=== PATIENT | male | born 1985 | race Caucasian/White ===

== ENCOUNTER 2017-02-07 23:30 | Emergency (ER) | payer MEDICAID ==
[~2017-02-07] VITALS: Ht 175.3 cm; Wt 79.4 kg
[2017-02-07 23:34] VITALS: BP 134/78
--- NOTE | 2017-02-07 23:39 | NUR ---
AMBULATED TO ER BED 3
--- NOTE | 2017-02-07 23:46 | NUR ---
31Y/M PT. PRESNTS TO ED WITH C/O TOOTHACHE X 2 HRS. PT. STATES HAVING TOOTH DECAY BUT HAVENT MAKE APPOINTMENT WITH DR. NATHAN COVINGTON HX. AAO X4,, AMBULATORY WITH STEDAY GAIT. C/O PAIN 11/08. VSS, ER MADE AWARE OF PT. STATUS.
[2017-02-07] MEDS ORDERED: IBUPROFEN 600 MG TAB PO ONE (23:55)
--- NOTE | 2017-02-07 23:55 | NUR ---
Patient being evaluated by DR. GUERRA at bedside.
[2017-02-08 00:19] VITALS: BP 134/78
--- NOTE | 2017-02-08 00:20 | NUR ---
Patient discharged with v/s stable. Written and verbal after care instructions given and explained. Patient alert, oriented and verbalized understanding of instructions. Ambulatory with to car. All questions addressed prior to discharge. ID band removed. Patient advised to follow up with PMD. Rx of NORCO 5/325 MG, NAPROSYN 375 MG, PENICILLIN VK 500 MG given. Patient educated on indication of medication including possible reaction and side effects. Opportunity to ask questions provided and answered.
== END 2017-02-08 00:20 | disposition home or self-care (01) ==
LOC: MED 23:30
DX: K02.9 Dental caries, unspecified (principal)
CPT/HCPCS: 99283

== ENCOUNTER 2018-01-13 12:48 | Emergency (ER) | payer MEDICAID ==
[~2018-01-13] VITALS: Ht 175.3 cm; Wt 87.5 kg
[2018-01-13 12:52] VITALS: BP 134/82
--- NOTE | 2018-01-13 13:09 | NUR ---
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 PT STATES MILD PAIN<3 SEC CAP REFILL . DENIES N/V/D; SKIN IS PINK/WARM/DRY; AAOX4 WITH EVEN AND STEADY GAIT; LUNGS CLEAR BL; HR EVEN AND REGULAR; PT DENIES ANY FEVER, CP, SOB, OR COUGH AT THIS TIME; PATIENT STATES PAIN OF 4/10 AT THIS TIME; VSS; PATIENT POSITIONED FOR COMFORT; HOB ELEVATED; BEDRAILS UP X2; BED DOWN. ER MD MADE AWARE OF PT STATUS.
--- NOTE | 2018-01-13 14:01 | NUR ---
Patient discharged with v/s stable. Written and verbal after care instructions given and explained. Patient verbalized understanding. Ambulatory with steady gait. All questions addressed prior to discharge. Advised to follow up with PMD.
[2018-01-13 14:02] VITALS: BP 134/82
== END 2018-01-13 14:01 | disposition home or self-care (01) ==
LOC: MED 12:48
DX: S61.011A Laceration without foreign body of right thumb without damage to nail, initial encounter (principal); W29.8XXA Contact with other powered hand tools and household machinery, initial encounter; Y93.89 Activity, other specified; Y92.89 Other specified places as the place of occurrence of the external cause; Y99.8 Other external cause status
CPT/HCPCS: 90471; 90715; 99283